=== PATIENT | male | born 1990 | race Caucasian/White ===

== ENCOUNTER 2024-08-15 12:36 | Emergency (ER) | payer OTHER ==
[~2024-08-15] VITALS: Ht 175.3 cm; Wt 74.0 kg
[2024-08-15] MEDS ORDERED: METHADONE HCL40 MG PO (13:10)
[2024-08-15] MEDS ORDERED: METHADONE HCL 10 MG TAB PO ONE ×2 (13:45→14:00)
[2024-08-15 14:07] VITALS: BP 133/75
== END 2024-08-15 14:06 | disposition home or self-care (01) ==
LOC: ED 12:36
DX: Z76.0 Encounter for issue of repeat prescription (principal); Z88.0 Allergy status to penicillin; Z88.8 Allergy status to other drugs, medicaments and biological substances; Z79.899 Other long term (current) drug therapy
CPT/HCPCS: 99281